=== PATIENT | female | born 1985 | race Caucasian/White ===

== ENCOUNTER 2021-10-01 18:28 | Emergency (ER) | payer OTHER, MEDICAID, SELFPAY ==
[2021-10-01 18:31] VITALS: BP 131/89; PULSE 103; RESP 18; TEMP 37.1; O2SAT 100
--- NOTE | 2021-10-01 18:35 | DI.RAD.S_ITS ---
PROCEDURE: XR CHEST 1V INDICATIONS: chest pain TECHNIQUE: One view of the chest was acquired. COMPARISON: None. FINDINGS: Surgical changes and devices: None. Lungs and pleura: No consolidation, pleural effusions or pneumothorax. Mediastinum: Mediastinal contours appear normal. Heart size is normal. Bones and chest wall: No suspicious bony lesions. Overlying soft tissues appear unremarkable. IMPRESSION: No acute cardiopulmonary abnormality. Dictated by: Kin Vora M.D. on 10/01/2021 at 19:23 Approved by: Kin Vora M.D. on 10/01/2021 at 19:23
[2021-10-01 18:50] LABS: Add Manual Diff / Slide Review NO; Basophils Absolute Auto 0 /uL (0-100); Basophils Percent Auto 0.3 % (0-2); Eosinophils Absolute Auto 0 /uL (0-450); Eosinophils Percent Auto 0.3 % (2-4); Hemoglobin 12.6 g/dL (12.0-16.0); Lymphocytes Absolute Auto 800 /uL (1100-4500); Lymphocytes Percent Auto 8.6 % (25-40); Mean Corpuscular HGB Conc 33.1 % (30-36); Mean Corpuscular Hemoglobin 26.8 PG (26-34); Mean Corpuscular Volume 81.1 fL (80-100); Monocytes Absolute Auto 300 /uL (0-900); Monocytes Percent Auto 3.8 % (3-14); Neutrophils Absolute Auto 7700 /uL (1500-7000); Platelet Count 210 X10^3/uL (150-400); Red Blood Cell Count 4.69 X10^6/uL (4.0-5.2); Red Cell Distribution Width 16.7 % (11.6-14.8); White Blood Cell Count 8.8 X10^3/uL (4.5-11.0)
[2021-10-01 19:06] LABS: Alanine Aminotransferase 21 IU/L (<35); Albumin 4.9 g/dL (3.5-5.0); Albumin Globulin Ratio 1.4 (1.0-2.8); Alkaline Phosphatase 89 U/L (38-126); Aspartate Aminotransferase 30 IU/L (14-36); BUN Creatinine Ratio 7.9 (6-22); Bilirubin Total 0.4 mg/dL (0.2-1.3); Blood Urea Nitrogen 5 mg/dL (7-17); Calcium 9.6 mg/dL (8.4-10.2); Carbon Dioxide 25 mmol/L (22-32); Chloride 104 mmol/L (98-107); Creatine Kinase 63 U/L (30-135); Estimated Glomerular Filt Rate > 60.0 mL/min (>60); Globulin 3.6 g/dL (1.7-4.1); Glucose 101 mg/dL (70-100); HEMOLYSIS < 15 (0-50); Lipase 48 U/L (23-300); Magnesium 2.3 mg/dL (1.6-2.3); Potassium 3.8 mmol/L (3.4-5.1); Sodium 140 mmol/L (137-145); Total Protein 8.5 g/dL (6.3-8.2)
[2021-10-01 19:18] LABS: Troponin I < 0.012 ng/mL (0.01-0.034)
[2021-10-01 19:28] LABS: COVID19 -Nasal RAPID Negative (Negative)
[2021-10-01 21:04] VITALS: PULSE 102; O2SAT 100
[2021-10-01 21:05] VITALS: BP 123/79; PULSE 108; RESP 22; O2SAT 100
--- NOTE | 2021-10-01 21:24 | ED_ITS ---
HPI - Chest Pain General Chief Complaint: Chest Pain Stated Complaint: Cough, Back Pain, Chest Pain Time Seen by Provider: 10/01/21 21:16 Source: patient Mode of arrival: Ambulatory History of Present Illness HPI narrative: Patient here for sore throat cough cold congestion nasal discharge/congestion dry cough reproducible sternal chest pain and body aches and muscle aches. Family sick with COVID a week and half ago. Patient started with symptoms this past Friday. Today worsening with body aches. Has been able drink. No urinary complaints. Nausea but no vomiting. Had small amount of diarrhea. Vital signs noted. Slightly tachycardic but on EKG sinus rhythm rate 100. Denies does not want a test Related Data Previous Rx's Medication Instructions Recorded albuterol sulfate 90 mcg/actuation 0 puff INH Q4HP PRN #1 ea 11/25/17 aerosol inhaler (Ventolin HFA) oseltamivir 75 mg capsule (Tamiflu) 75 mg PO BID #10 cap 11/25/17 promethazine 6.25 mg-codeine 10 5 ml PO Q4HP PRN #180 ml 11/25/17 mg/5 mL syrup benzonatate 100 mg capsule 100 mg PO TID PRN #20 cap 10/01/21 fluticasone propionate 50 1 spray INTRANASAL DAILY #16 g 10/01/21 mcg/actuation nasal spray,suspension ibuprofen 600 mg tablet 600 mg PO Q6H PRN #24 tab 10/01/21 ondansetron 4 mg disintegrating 4 mg PO Q8H PRN #10 tab 10/01/21 tablet Allergies Allergy/AdvReac Type Severity Reaction Status Date / Time ciprofloxacin [From CIPRO] Allergy Unknown Unverified 01/28/18 12:28 Sulfa (Sulfonamide Allergy Unknown Unverified 01/28/18 12:28 Antibiotics) [SULFA (SULFONAMIDE ANTIBIOTICS)] Review of Systems Review of Systems Narrative: GENERAL: Positive for chills, fatigue, malaise, fever, sweats. HEENT: Denies sinus pain, ear pain, sore throat RESPIRATORY: Denies dyspnea, positive for cough CARDIOVASCULAR: Denies chest pain, palpitations GASTROINTESTINAL: Positive for nausea, negative for vomiting, abdominal pain : Denies dysuria, frequency, hematuria MUSCULOSKELETAL: Positive for muscle or bony pain SKIN: Denies rash, skin lesions NEUROLOGIC: Denies weakness, numbness ROS Unobtainable: All systems reviewed & are unremarkable except as noted in HPI and below Exam Narrative Exam Narrative: GENERAL: in no distress, not toxic not dyspneic HEAD: Normocephalic. EYES: Pupils equal round No scleral icterus. ENT: Mucous membranes moist. NECK: Trachea midline. CARDIOVASCULAR: Regular rate and rhythm without murmurs, there is reproducible sternal tenderness on palpation and with deep breath coughing and movement. RESPIRATORY: Clear to auscultation. Breath sounds equal bilaterally. No wheezes, rales, or rhonchi. GASTROINTESTINAL: Abdomen soft, non-tender EXTREMITIES: No gross deformities. BACK: No flank tenderness. NEURO: AOx4. SKIN: Warm and dry PSYCH: Not anxious, is cooperative Initial Vital Signs Initial Vital Signs: Vital Signs Temperature 98.7 F 10/01/21 18:31 Pulse Rate 103 H 10/01/21 18:31 Respiratory Rate 18 10/01/21 18:31 Blood Pressure 131/89 10/01/21 18:31 Pulse Oximetry 100 10/01/21 18:31 Course Course Course Narrative: No new issues during course of stay. Orders Ordered: ED Orders 10/01/21 17:42 Complete Blood Count AUTO DIFF Stat Comprehensive Metabolic Panel Stat Lipase Stat Magnesium Stat Troponin & CK Cardiac Panel Stat 10/01/21 18:35 XR chest 1V Stat EKG-12 Lead Stat 10/01/21 18:45 D Dimer Stat 10/01/21 18:54 COVID19 -Nasal swab/Pre-Proc Stat Discontinued Medications Acetaminophen (Acetaminophen 325 Mg Tablet) 975 mg PO NOW ONE Stop: 10/01/21 22:13 Last Admin: 10/01/21 22:17 Dose: 975 mg Documented by: DAVID Benzonatate (Benzonatate 100 Mg Capsule) 100 mg PO NOW ONE Stop: 10/01/21 21:25 Last Admin: 10/01/21 22:01 Dose: 100 mg Documented by: DAVID Ketorolac Tromethamine (Ketorolac 30 Mg/Ml Vial) 15 mg IV NOW ONE Stop: 10/01/21 21:25 Last Admin: 10/01/21 22:01 Dose: 15 mg Documented by: DAVID Ondansetron HCl (Ondansetron 4 Mg/2 Ml Inj) 4 mg IV NOW ONE Stop: 10/01/21 21:25 Last Admin: 10/01/21 22:01 Dose: 4 mg Documented by: DAVID Oxymetazoline HCl (Oxymetazoline Nasal Harmans 15 Ml) 2 sprays NASAL NOW ONE Stop: 10/01/21 21:38 Last Admin: 10/01/21 22:01 Dose: 2 sprays Documented by: DAVID Reevaluation(s) Reevaluation #1: Reviewed results with patient. Likely pleurisy and costochondritis with upper respiratory infection. She does not want viral panel, respiratory panel. Does not want nasal swab again. Return precautions reviewed with her. She desires discharge home. Feeling much better after medications here. Reevaluation #2: Fever noted. However patient does not want to stay. Desires Tylenol and discharge. Time: 22:14 Vital Signs Vital signs: Vital Signs - 8 hr 10/01/21 18:31 10/01/21 21:04 10/01/21 21:05 Temperature 98.7 F Pulse Rate 103 H 102 H 108 H Respiratory Rate 18 22 Blood Pressure 131/89 123/79 Pulse Oximetry 100 100 100 10/01/21 21:30 10/01/21 22:00 Temperature 101.5 F H Pulse Rate 100 H 104 H Respiratory Rate Blood Pressure 124/76 126/80 Pulse Oximetry 99 98 MDM - Chest Pain Differential Diagnosis Differential diagnosis: Likely other (Upper respiratory infection/costochondritis/pleurisy/bronchitis/pneumonia/pulmonary embolism/COVID) Lab Data Result diagrams: 10/01/21 17:42 10/01/21 17:42 Labs: Lab Results 10/01/21 10/01/21 10/01/21 Range/Units 17:42 17:42 18:45 WBC 8.8 (4.5-11.0) X10^3/uL RBC 4.69 (4.0-5.2) X10^6/uL Hgb 12.6 (12.0-16.0) g/dL Hct 38.0 (36-46) % MCV 81.1 (80-100) fL MCH 26.8 (26-34) PG MCHC 33.1 (30-36) % RDW 16.7 H (11.6-14.8) % Plt Count 210 (150-400) X10^3/uL Neut % (Auto) 87.0 H (50-75) % Lymph % (Auto) 8.6 L (25-40) % Chambers % (Auto) 3.8 (3-14) % Eos % (Auto) 0.3 L (2-4) % Baso % (Auto) 0.3 (0-2) % Neut # (Auto) 7700 H (7472-9178) /uL Lymph # (Auto) 800 L (0972-8694) /uL Chambers # (Auto) 300 (0-900) /uL Eos # (Auto) 0 (0-450) /uL Baso # (Auto) 0 (0-100) /uL D-Dimer 214 (<230) ng/mL Sodium 140 (137-145) mmol/L Potassium 3.8 (3.4-5.1) mmol/L Chloride 104 (98-107) mmol/L Carbon Dioxide 25 (22-32) mmol/L BUN 5 L (7-17) mg/dL Creatinine 0.63 (0.52-1.04) mg/dL Estimated GFR > 60.0 (>60) mL/min BUN/Creatinine Ratio 7.9 (6-22) Glucose 101 H (70-100) mg/dL Calcium 9.6 (8.4-10.2) mg/dL Magnesium 2.3 (1.6-2.3) mg/dL Total Bilirubin 0.4 (0.2-1.3) mg/dL AST 30 (14-36) IU/L ALT 21 (<35) IU/L Alkaline Phosphatase 89 (38-126) U/L Total Creatine Kinase 63 (30-135) U/L CK-MB (CK-2) TNP CK-MB (CK-2) Rel Index TNP Troponin I < 0.012 (0.01-0.034) ng/mL Total Protein 8.5 H (6.3-8.2) g/dL Albumin 4.9 (3.5-5.0) g/dL Globulin 3.6 (1.7-4.1) g/dL Albumin/Globulin Ratio 1.4 (1.0-2.8) Lipase 48 (23-300) U/L SARS-CoV-2 (PCR) (Negative) 10/01/21 Range/Units 18:54 WBC (4.5-11.0) X10^3/uL RBC (4.0-5.2) X10^6/uL Hgb (12.0-16.0) g/dL Hct (36-46) % MCV (80-100) fL MCH (26-34) PG MCHC (30-36) % RDW (11.6-14.8) % Plt Count (150-400) X10^3/uL Neut % (Auto) (50-75) % Lymph % (Auto) (25-40) % Chambers % (Auto) (3-14) % Eos % (Auto) (2-4) % Baso % (Auto) (0-2) % Neut # (Auto) (0056-2984) /uL Lymph # (Auto) (4027-9033) /uL Chambers # (Auto) (0-900) /uL Eos # (Auto) (0-450) /uL Baso # (Auto) (0-100) /uL D-Dimer (<230) ng/mL Sodium (137-145) mmol/L Potassium (3.4-5.1) mmol/L Chloride (98-107) mmol/L Carbon Dioxide (22-32) mmol/L BUN (7-17) mg/dL Creatinine (0.52-1.04) mg/dL Estimated GFR (>60) mL/min BUN/Creatinine Ratio (6-22) Glucose (70-100) mg/dL Calcium (8.4-10.2) mg/dL Magnesium (1.6-2.3) mg/dL Total Bilirubin (0.2-1.3) mg/dL AST (14-36) IU/L ALT (<35) IU/L Alkaline Phosphatase (38-126) U/L Total Creatine Kinase (30-135) U/L CK-MB (CK-2) CK-MB (CK-2) Rel Index Troponin I (0.01-0.034) ng/mL Total Protein (6.3-8.2) g/dL Albumin (3.5-5.0) g/dL Globulin (1.7-4.1) g/dL Albumin/Globulin Ratio (1.0-2.8) Lipase (23-300) U/L SARS-CoV-2 (PCR) Negative (Negative) Imaging Data Chest x-ray: Radiologist's Impression: [address] [address] XRay Report Signed Patient: Vera Lee MR#: [id number] : 1985 Acct:[id number] Age/Sex: 35 / F Date of Service: 10/01/21 Loc: ED Accession Number: [id number] ?? Procedure: XR chest 1V Ordering Provider: Sidney Adames D.O. PROCEDURE:? XR CHEST 1V ? INDICATIONS:? chest pain ? TECHNIQUE:? One view of the chest was acquired.? ? COMPARISON:? None. ? FINDINGS:? ? Surgical changes and devices:? None.? ? Lungs and pleura:? No consolidation, pleural effusions or pneumothorax.? ? Mediastinum:? Mediastinal contours appear normal.? Heart size is normal.? ? Bones and chest wall:? No suspicious bony lesions.? Overlying soft tissues appear unremarkable.? ? IMPRESSION:? No acute cardiopulmonary abnormality. ? ? Dictated by: Kin Vora M.D. on 10/01/2021 at 19:23 ? ? Approved by: Kin Vora M.D. on 10/01/2021 at 19:23 ? ECG Data Interpretation: Normal EKG, normal sinus rhythm, rate 100. MDM Narrative Medical decision making narrative: Appropriate for discharge home. Laboratory studies reassuring. As well as johan ging. Exam reassuring. Return precautions reviewed with patient. Agrees with the treatment plan and she desires discharge home. Not toxic discharge. Low heart score. Pain is reproducible. Tachycardia is nonspecific. D-dimer negative. Discharge Plan Departure Patient Disposition: Home Clinical Impression: Acute upper respiratory infection Instructions: DI for Viral Upper Respiratory Infection -- Adult, DI for Costochondritis Activity Restrictions/Additional Instructions: See family doctor this week for recheck. Keep well hydrated. Continue ibuprofen or Tylenol for pain/fever. Continue home medications. Continue home inhaler if needed for asthma. Return if worsening symptoms or if any questions or concerns Prescriptions: New fluticasone propionate 50 mcg/actuation spray,suspension 1 spray intranasal DAILY Qty: 16 0RF Rx Instructions: administer into each nostril benzonatate 100 mg capsule 100 mg PO TID PRN (Reason: cough) Qty: 20 0RF ondansetron 4 mg tablet,disintegrating 4 mg PO Q8H PRN (Reason: nausea and vomiting) Qty: 10 0RF ibuprofen 600 mg tablet 600 mg PO Q6H PRN (Reason: fever or pain) Qty: 24 0RF No Action oseltamivir [Tamiflu] 75 MG capsule 75 mg PO BID Qty: 10 0RF albuterol sulfate [Ventolin HFA] 90 MCG/PUFF HFA aerosol inhaler 0 puff INH Q4HP PRNQty: 1 0RF promethazine-codeine 6.25 MG/10 MG syrup 5 ml PO Q4HP PRNQty: 180 0RF
[2021-10-01 21:30] VITALS: BP 124/76; PULSE 100; O2SAT 99
[2021-10-01 21:46] LABS: D Dimer 214 ng/mL (<230)
[2021-10-01 22:00] VITALS: BP 126/80; PULSE 104; TEMP 38.6; O2SAT 98
[2021-10-01] MEDS: ONDANSETRON 4 MG/2 ML INJ IV (22:01)
[2021-10-01] MEDS: KETOROLAC 30 MG/ML VIAL 15 MG IV (22:01)
[2021-10-01] MEDS: BENZONATATE 100 MG CAPSULE PO (22:01)
[2021-10-01] MEDS: OXYMETAZOLINE NASAL SPRAY 15 ML 2 SPRAYS NASAL (22:01)
[2021-10-01] MEDS: ACETAMINOPHEN 325 MG TABLET 975 MG PO (22:17)
== END 2021-10-01 22:24 | disposition home or self-care (01) ==
PROVIDERS: Emergency Medicine; Emergency Provider Emergency Medicine
DX: J06.9 Acute upper respiratory infection, unspecified (principal); R00.0 Tachycardia, unspecified; Z20.822 Contact with and (suspected) exposure to COVID-19
CPT/HCPCS: 36415; 71045; 80053; 82550; 83690; 83735; 84484; 85025; 85379; 87635; 93005; 93010; 96374; 96375; 99284; C9803; A9270; J1885; J2405